=== PATIENT | female | born 1985 | race Caucasian/White ===

== ENCOUNTER 2024-07-26 07:55 | Outpatient (OUT) | payer BC, SELFPAY ==
--- NOTE | 2024-07-26 08:00 | MM_ITS ---
Patient Name: ELVIRA ADAMS MR#: [id number] : 1985 Exam Date: 07/26/2024 Ordering Doctor: DR. CLINTON GILES D.O. RADIOLOGY REPORT PROCEDURE: MM TOMOSYNTHESIS SCREENING BI COMPARISON: None. INDICATIONS: Screening Calculator Name NCI Breast Cancer Risk Assessment Tool 5 Year Breast Cancer Risk 0.70% Lifetime Breast Cancer Risk 12.10% Personal Breast Cancer No Personal Ovarian Cancer No Treatments None Family Cancers Grandmother-maternal with breast cancer at age ~60; Father with pancreatic cancer at age 61. LOCATION: [facility] BREAST COMPOSITION: There are scattered areas of fibroglandular density. FINDINGS: DIAGNOSTIC CATEGORY 1--NEGATIVE. RIGHT BREAST: No significant suspicious finding. LEFT BREAST: No significant suspicious finding. RECOMMENDATIONS: ROUTINE MAMMOGRAM AND CLINICAL EVALUATION IN 12 MONTHS. PLEASE NOTE: A NORMAL MAMMOGRAM DOES NOT EXCLUDE THE POSSIBILITY OF BREAST CANCER. A CLINICALLY SUSPICIOUS PALPABLE LUMP SHOULD BE BIOPSIED. Dictated by: Kashif Higginbotham M.D. on 07/26/2024 at 16:26 Approved by: Kashif Higginbotham M.D. on 07/26/2024 at 16:30
== END 2024-07-26 07:56 | disposition home or self-care (01) ==
LOC: MAMMO 07:55
PROVIDERS: Visit Provider Obstetrics & Gynecology
DX: Z12.31 Encounter for screening mammogram for malignant neoplasm of breast (principal); Z80.3 Family history of malignant neoplasm of breast; Z80.8 Family history of malignant neoplasm of other organs or systems
CPT/HCPCS: 77063; 77067

== ENCOUNTER 2025-08-17 07:53 | Outpatient (OUT) | payer BC, SELFPAY ==
--- OUTSIDE RECORDS SUMMARY | 2025-08-17 07:57 | XMS_ITS | Clinical Summary ---
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 Name Role Phone Opal Kruger MD Primary Care Provider [phone] Alayna Aguilar DO Unavailable [phone] Allergies No known active allergies Medications MedicationSigDispense QuantityRefillsLast FilledStart DateEnd DateStatus Multiple Vitamins-Minerals (Multi Complete) capsule as directed OrallyActive Lactic Ac-Citric Ac-Pot Bitart (Phexxi) 1.8-1-0.4 % gel Indications: control counselingApply applicator inside vagina up to one hour prior to intercourse 5 g 5Active Family History Medical HistoryRelationNameCommentsCancerFatherDiabetesMaternal GrandfatherHeart diseaseMaternal GrandmotherBreast cancerPaternal GrandmotherRelationNameStatus AzzgyzrkUzratum7DvfqnvQhoycwkoOhhlgdyg GrandfatherMaternal GrandmotherPaternal GrandmotherSonAlive2 Social History Tobacco UseTypesPacks/DayYears UsedDateSmoking Tobacco: NeverSmokeless Tobacco: Never Tobacco Cessation:Counseling Given: Not Answered Alcohol UseStandard Drinks/WeekCommentsYes2 (1 standard drink = 0.6 oz pure alcohol)Caffeine intake: 1-2 cups per dayAUDIT-CAnswerDate RecordedQ1: How often do you have a drink containing alcohol?2-4 times a month10/15/2023Q2: How many drinks containing alcohol do you have on a typical day when you are drinking?1 or Q3: How often do you have six or more drinks on one occasion?Never 10/15/2023CommentsUnknownSex and Gender InformationValueDate RecordedSex Assigned at BirthNot on fileLegal IikRbnzha15/15/2023 11:19 PM EDTGender IdentityNot on fileSexual OrientationNot on file Last Filed Vital Signs Vital SignReadingTime TakenCommentsBlood Dyeclkww627/80011/18/2024 10:16 AM EST Pulse--Temperature--Respiratory Rate--Oxygen Saturation--Inhaled Oxygen Concentration--Xlcros931 kg (225 lb)11/18/2024 10:16 AM XZOLkhvtm064.5 cm (5' 2 )06/02/2024 11:37 AM EDTBody Mass Index41.15006/02/2024 11:37 AM EDT Plan of Treatment DateTypeDepartmentCare Team (Latest Contact Info)Vuwwmsuxtge66/27/2026 10:15 AM ESTOffice Visit ARIANA RUIZ [address] [facility] [address] [place] [phone] Alayna Aguilar DO [address] [facility] [address] [place] [address] Insurance Care Teams Team MemberRelationshipSpecialtyStart DateEnd Date Opal Kruger MD [address] [place] [address] PCP - GeneralFamily Ccbqnzlp34/20/23 Alayna Aguilar DO [address] [facility] [address] [place] [address] Referring PhysicianObstetrics and Ckxnqrynde35/20/23
--- OUTSIDE RECORDS SUMMARY | 2025-08-17 08:00 | XMS_ITS | CCD ---
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 Name Role Phone Karen Hassan Unavailable Opal Kruger MD Primary Care Provider [phone] Clinton Giles DO Unavailable CLINTON GILES Attending Unavailable CLINTON GILES Attending Unavailable CLINTON GILES Attending Unavailable CLINTON GILES Referring Unavailable Medications Current Medications MedicationDrug Class(es)DatesSig (Normalized)Sig (Original)amoxicillin 875 mg oral tablet (1 source)Penicillin-class AntibacterialStart: 11-97-9316jynv 1 tablet by mouth every twelve hoursAmoxicillin 875 MG 1 tablet Orally every 12 hrs for 10 days Dec, Activecitric acid 0.01 mg/mg / lactic acid 0.018 mg/mg / potassium bitartrate 0.004 mg/mg vaginal gel (5 sources)Calculi Dissolution Agent, Anti-coagulantStart: 75-25-8138Eoaiyw Ac- Citric Ac-Pot Bitart (Phexxi) 1.8-1-0.4 % gel Indications: control counseling Applyapplicator inside vagina up to one hour prior to intercourse 5 g 3 11/18/2024 ActiveStart: 58-03-1470Ysosad Ac-Citric Ac-Pot Bitart (Phexxi) 1.8-1-0.4 % gel Indications: control counseling Applyapplicator inside vagina up to one hour prior to intercourse 5 g 3 11/18/2024 Active End: 82-64-7516Vnfzrw Ac-Citric Ac-Pot Bitart (Phexxi) 1.8-1-0.4 % gel 1 application 11/18/2024 Discontinued (Reorder)Multiple Vitamins-Minerals (Multi Complete) capsule (3 sources)Multiple Vitamins-Minerals (Multi Complete) capsule as directed Orally Active Problems Problem ClassificationProblemDateDocumented DateEpisodic/ChronicContraceptive and procreative management (4 sources)Patient encounter status; Translations: [Encounter for other general counseling and advice on contraception]14-61-8033NejazdsjJusmt screening for suspected conditions (not mental disorders or infectious disease) (2 sources)Cancer cervix screening status; Translations: [Encounter for screening for malignant neoplasm of cervix]24-61-4781AuizqtnoBfqea upper respiratory infections (2 sources)Acute pharyngitis, unspecified; Translations: [Streptococcal pharyngitis]Episodic Results Test NameValueInterpretationReference RangeFaciladena fayette medical centerQuick Strepon 12-25-2022S. pyogenes Org specific cx Ql (Throat)PositiveFlomio Ridemakerz Other Quick StrepNo[employer] Other Vital Signs Date TimeVital SignValuePerforming QeslulovwJoewekiw99-48-8318 10:16-0500Body mass index (BMI) [Ratio]41.15 kg/v9Whyzbqco Rinkes DO Work Phone: YgleZwbpvtltow57-12-9136 10:16-0500Body jhdkwa305.06 kgKatPufferfish DO Work Phone: [employer] Yfghpfftut12-62-1042 10:16-0500Diastolic blood llpjeikz13 mm[Hg]ClintonPufferfish DO Work Phone: [facility] Koqvixjedz79-90-0033 10:16-0500Systolic blood svmlspiq306 mm[Hg]ClintonNatureBridge DO Work Phone: YgleSebiqiklmj73-24-7413 09:25-0500Body purkuz542.48 Smitha Hassan Other [email or web address] Other 678032-21-8224 09:25-0500Body mass index (BMI) [Ratio] 38.41 kg/p9YipadrjtiKaren Hassan Other [email or web address] Other 03-01-2023 09:25-0500Body thrrmpclovv37.2 [degF] Karen Hassan Other [email or web address] Other 03-01-2023 09:25-0500Body sosmdx31.26 kgKaren Hassan Other [email or web address] Other 03-01-2023 09:25-0500Respiratory rate18 /minSroxana Hassan Other [email or web address] Other 03-01-2023 09:25-4446BxB1% (BldA) [Mass fraction]98 % Karen Hassan Other [email or web address] Other Encounters Encounter DateEncounter TypeCare ProviderFacilityStart: 11-18-2024 End: 97-94-4901Yjdykh flowsheetKathleen E Rinkes DO Work Phone: [facility] OBStart: 11-18-2024 End: 67-28-8037Qcxjkc flowsheetKathleen E Rinkes DO Work Phone: [facility] OBStart: 11-18-2024 End: 26-64-1939Osbrxlj encounter statusKathleen E Rinkes DO Work Phone: [facility] HealthcareStart: 11-18-2024 End: 71-36-9617Uvlmcrhj preventive med est patient 40-64yrsKathleen E Rinkes DO Work Phone: [facility] OBComment on above:Encounter for gynecological examination without abnormal finding; Screening for malignant neoplasm of cervix; Encounter for screening mammogram for breast cancer; control counselingStart: 11-18-2024 End: 07-17-0995ycixjusyllSMVKALLF E RINKESNot AvailableStart: 06-02-2024 End: 21-36-3969jzpagrzgxjKOAKFLIX E RINKESNot AvailableStart: 11-27-2023 End: 47-86-7482zrhhnvafciXFYRSFIN E RINKESNot AvailableStart: 12-25-2022 End: 61-61-0758stafzvxzodIueiopakz Breault Other Nort [employer] Other Start: 09-00-9091Tixosn outpatient new 30 minutes Karen HassanFPJamie [facility] Nadir Procedures DateProcedureProcedure DetailPerforming ClinicianStart: 35-58-9308Hxeegsueywc Clinton Giles DO Work Phone: Plan of Treatment DateCare ActivityDetailAuthorStart: 50-61-3156Uewezsnhn for malignant neoplasm of cervixNOMS HealthcareStart: 73-69-9304Kkzssrjft for malignant neoplasm of breastMammogramNOMS HealthcareStart: 11-18-2024 End: 49-54-1672YGL Breast - bilateral screeningBilateral screening mammogram with tomosynthesis Imaging Routine Encounter for screening mammogram for breast cancer Expected: 11/18/2024, Expires: 01/16/2026[facility] HealthcareComment on above: Expected: 11/18/2024, Expires: 01/16/2026Start: 11-18-2024 End: 41-63-2285Atwllnb encounter fytiurklx50/23/2025 10:15 AM EST Office Visit [facility] [address] [place] [phone] Clinton Giles DO [address] [place] [address] Encounter for gynecological examination without abnormal finding; Screening for malignant neoplasm of cervix; Encounter for screening mammogram for breast cancerNOMS [facility] OBComment on above:Encounter for gynecological examination without abnormal finding; Screening for malignant neoplasm of cervix; Encounter for screening mammogram for breast cancerStart: 86-69-7685Ygqqlamyd vaccinationInfluenza Vaccine (#1)[facility] HealthcareStart: 43-45-5167Ibnjvjdok for malignant neoplasm of cervixPap SmearNOMS HealthcareIGP, RFX APTIMA HPV ASCUIGP, RFX APTIMA HPV ASCU Lab Routine Screening for malignant neoplasm of cervix Ordered: 11/18/2024[facility] Work Phone: comment on above:Ordered: 11/18/2024 Payers DatePayer CategoryPayerPolicy [id number] Health Allen HospitalBS Member Subscriber Plan / Payer (Effective 2019-Present) Name: Reena Weir Relation to Subscriber: Spouse Name: ANA WEIR Date of : 1899 (Home) Address: [address] [place] [id number] Payer ID: Not on file Type: Not on file Address: [facility] [id number] [place] [id number] [facility] [id number] [id number] [id number] Social History DateTypeDetailFacilityStart: 10-15-2023 End: 28-14-4835Asf Assigned At BirthNOSC HealthcareStart: 94-82-3053Cnjufdv smoking status NHISNever smoked tobaccoNOSC HealthcareStart: 19-52-0997Gnvdfsp use and exposureSmokeless tobacco non-userNOSC HealthcareStart: 11-12-2024 End: 08-13-6911Obpldgmhu beverage intakeCurrent drinker of alcohol (finding)[facility] HealthcareStart: 11-25-2023 End: 44-27-2793Quynefrly beverage intakeNOSC HealthcareHow often to you have a drink containing alcohol?2-4 times a monthNOSC HealthcareHow many standard drinks containing alcohol do you have on a typical day?1 or 2NOMS HealthcareHow often do you have 6 or more drinks on 1 occasion?NeverNOSC HealthcareStart: 41-25-4054Sogrtmg CommentCaffeine intake: 1-2 cups per dayNOSC HealthcareStart: 59-89-0610Dkc assigned at birthNot on filePhelps Health History of Present illness Narrative 11-18-2024 Note Date & PtdiYkvkHraxhkno61-73-0167 History of Present illness Narrative* Clinton Giles DO - 11/18/2024 10:15 AM EST Images from the original note were not included. Clinton Giles D.O. Obstetrics and Gynecology Patient: Reena Weir : 1985 (39 y.o.) Yearly Wellness Exam Date: 11/18/2024 Reason for Visit - Chief Complaint Patient presents with Gynecologic Exam Denies concerns. Denies bowel/bladder/breast concerns. Pt up to date with mammogram. LMP 11/13/24 menses regular. Visit Vitals BP 132/80 Wt 225 lb LMP 11/13/2024 BMI 41.15 kg/m Smoking Status Never BSA 2.11 m No Known Allergies History of Present Illness, Associated Treatments and Results - OB History Para Term AB Living 2 2 0 0 0 0 SAB IAB Ectopic Multiple Live Births 0 0 0 0 0 # Outcome Date GA Lbr Branden/2nd Weight Sex Type Anes PTL Lv 2 Para 1 Para Obstetric Comments Pap smear 09/25/22 wnl, 10/16/23 Atypical glandular cells., 06/02/24 wnl Mammogram 08/17/24 wnl @ [place] Review of Systems - General: Chills denies. Allergy/Immunology: Rash Denies. ENT: Denies Difficulty swallowing. Endocrine: Denies Cold intolerance denies. Heat intolerance denied. Respiratory: Denies Chest pain denies. Shortness of breath denies. Breast: Denies Bloody nipple discharge denies. Breast lump denies. Cardiovascular: Denies Chest pain. Gastrointestinal: Abdominal pain denies. Blood in stool denies. Hematology: Easy bruising denies. Prolonged bleeding denies. Women Only: Breast lump denies. Vaginal bleeding between periods is denied. Vaginal discharge/itching denied. Genitourinary: Blood in urine denies. Painful urination denies. Incontinence denies. Skin: Hair changes. Neurologic: Seizures denied. Stroke denies. Psychiatric: Anxiety denies. Depressed mood denies. Medication Documentation Review Audit Reviewed by Clare Gama MA (Supply Chain Associate) on 11/18/24 at 1016 Medication Order Taking? Sig Documenting Provider Last Dose Status Lactic Ac-Citric Ac-Pot Bitart (Phexxi) 1.8-1-0.4 % gel [id number] 1 application Clinton Giles DO Active Multiple Vitamins-Minerals (Multi Complete) capsule [id number] as directed Orally Clinton Giles, DO Active Past Medical History: Diagnosis Date Abnormal Pap smear of cervix 09/2023 Past Surgical History: Procedure Laterality Date SECTION, LOW TRANSVERSE 2016 COLPOSCOPY 11/27/2023 atypical glandular cells OTHER SURGICAL HISTORY 10/30/2021 IUD removal VAGINAL DELIVERY 2011 Family History Problem Relation Name Age of Onset Cancer Father Heart disease Maternal Grandmother Diabetes Maternal Grandfather Breast cancer Paternal Grandmother Physical Exam - General appearance, mentation, extraocular movements, facial strength and movement, hearing, upper and lower extremity strength and tone, sensation to gross testing, coordination, and gait are normalor at baseline unless noted below. General Examination: GENERAL APPEARANCE: alert oriented well developed, well nourished. HEAD: normocephalic atraumatic. EYES: sclera anicteric. EARS: no obvious hearing deficit. SKIN: warm and dry. HEART: regular rate and rhythm. LUNGS: clear to auscultation bilaterally. CHEST: axillary nodes grossly normal. BREASTS: no masses palpable bilaterally, normal nipples bilaterally. ABDOMEN: soft, nontender, nondistended, no masses palpable. BACK: no costovertebral angle tenderness, no obvious scoliosis/kyphosis. FEMALE GENITOURINARY: normal vaginal mucosa, moderate amount of blood in vault, cervix absent of lesions, nontender, uterus AV, mobile, ovaries nonpalpable and nontender. EXTREMITIES: no edema. NEUROLOGIC: alert and oriented. PSYCH: cooperative with exam. Diagnoses and all orders for this visit: Encounter for gynecological examination without abnormal finding Screening for malignant neoplasm of cervix - IGP, RFX APTIMA HPV ASCU Encounter for screening mammogram for breast cancer - Bilateral screening mammogram with tomosynthesis; Future control counseling - Lactic Ac-Citric Ac-Pot Bitart (Phexxi) 1.8-1-0.4 % gel; Apply applicator inside vagina up to onehour prior to intercourse Pap, pelvic and breast exam completed. Findings of today's exam discussed with the patient. Continue MSBE. Ca/Vit D recommendations reviewed with the patient. The patient is to contact the office with any changes to her gynecological condition. The patient is to return in 1 year or as needed ICD-10-CM 1. Encounter for gynecological examination without abnormal finding Z01.419 2. Screening for malignant neoplasm of cervix Z12.4 IGP, RFX APTIMA HPV ASCU 3. Encounter for screening mammogram for breast cancer Z12.31 Bilateral screening mammogram with tomosynthesis 4. control counseling Z30.09 Lactic Ac-Citric Ac-Pot Bitart (Phexxi) 1.8-1-0.4 % gel documented in this encounterPhelps Health Evaluation note 12-25-2022 Note Date & HvvtSfmkYfsqwwbp52-71-2278 Evaluation note* Encounter Date Diagnosis Assessment Notes Treatment Notes Treatment Clinical Notes Dec, Sore throat (ICD-10 - J02.9) Dec,Strep pharyngitis (ICD-10 - J02.0)Symptoms presented in office today indicate Strep Throat. Take medications as directed. Saltwater gargles may help with pain and disrupts bacteria and viral infections. Continue tylenol/ibu for general discomfort. Encourage fluids. Symptoms should improve within the next 4- 7 days. [email or web address] Other Evaluation note Note Date & TypeNoteFacilityEvaluation note* Diagnosis Encounter for gynecological examination without abnormal finding Screening for malignant neoplasm of cervix Screening for malignant neoplasm of the cervix Encounter for screening mammogram for breast cancer control counseling documented in this encounter [facility] Summary Purpose Family History No Family History Records Found Advance Directives No Advanced Directives Records Found Additional Source Comments REASON FOR VISIT (unrecogniz ed section and content) ReasonCommentsGynecologic ExamDenies concerns. Denies bowel/bladder/breast concerns. Pt up to date with mammogram. LMP 11/13/24 menses regular. Care Teams (unrecognized sec tion and content) Team MemberRelationshipSpecialtyStart DateEnd Date Opal Kruger MD [address] [place] [address] PCP - GeneralFamily Iqaclmbo08/20/23 Clinton Gilse DO [address] [place] [address] Referring PhysicianObstetrics and Kvzniniijj53/20/23Team MemberRelationship SpecialtyStart DateEnd Date Opal Kruger MD [address] [place] [address] PCP - GeneralFami Crabpgnd00/20/23 Clinton Giles DO [address] [facility] [address] [place] [address] Referring PhysicianObstetrics and Xxshxossfb79/20/23 INFORMATION SOURCE (unrecogn ized section and content) DATE CREATED AUTHOR 11/20/2024 [facility] FOR RECORDS PERTAINING TO PATIENTS WHO ARE OR HAVE BEEN ENROLLED IN A CHEMICAL DEPENDENCY/SUBSTANCEABUSE PROGRAM, SOME INFORMATION MAY BE OMITTED. This clinical summary was aggregated from multiple sources. Caution should be exercised in using it in the provision of clinical care. This summary normalizes information from multiple sources, and as a consequence, information in this document may materially change the coding, format and clinical context of patient data. In addition, data may be omitted in some cases. CLINICAL DECISIONS SHOULD BE BASED ON THE PRIMARY CLINICAL RECORDS. [employer] [facility]. provides no warranty or guarantee of the accuracy or completeness of information in this document.
--- NOTE | 2025-08-17 08:01 | MM_ITS ---
Patient Name: ELVIRA ADAMS MR#: [id number] : 1985 Exam Date: 08/17/2025 Ordering Doctor: DR. CLINTON GILES D.O. RADIOLOGY REPORT PROCEDURE: MM TOMOSYNTHESIS SCREENING BI COMPARISON: MM TOMOSYNTHESIS SCREENING BI, 07/26/2024. INDICATIONS: Screening for malignant neoplasm Calculator Name NCI Breast Cancer Risk Assessment Tool 5 Year Breast Cancer Risk 0.70% Lifetime Breast Cancer Risk 12.00% Personal Breast Cancer No Personal Ovarian Cancer No Treatments None Family Cancers Grandmother-maternal with breast cancer at age ~60; Father with pancreatic cancer at age 61. LOCATION: [facility] BREAST COMPOSITION: There are scattered areas of fibroglandular density. FINDINGS: RIGHT BREAST: No significant suspicious finding. LEFT BREAST: No significant suspicious finding. Bilateral neck calcifications are noted. DIAGNOSTIC CATEGORY 2--BENIGN FINDING: RECOMMENDATIONS: ROUTINE MAMMOGRAM AND CLINICAL EVALUATION IN 12 MONTHS. Dictated by: Seven Cooley MD on 08/17/2025 at 11:11 Approved by: Seven Cooley MD on 08/17/2025 at 11:14
== END 2025-08-17 07:54 | disposition home or self-care (01) ==
LOC: MAMMO 07:55
PROVIDERS: Visit Provider Obstetrics & Gynecology
DX: Z12.31 Encounter for screening mammogram for malignant neoplasm of breast (principal); Z80.3 Family history of malignant neoplasm of breast; Z80.8 Family history of malignant neoplasm of other organs or systems
CPT/HCPCS: 77063; 77067